=== PATIENT | male | born 1990 | race Caucasian/White ===

== ENCOUNTER 2018-03-13 16:47 | Emergency (ER) | payer OTHER ==
[~2018-03-13] VITALS: Ht 182.9 cm; Wt 90.7 kg
[2018-03-13] MEDS ORDERED: NORCO 5-325 TA1 EACH PO (17:31)
[2018-03-13] MEDS ORDERED: IBUPROFEN 800800 MG PO (17:32)
[2018-03-13] MEDS ORDERED: ACETAMINOPHEN-1 EAC1 PO (17:32)
[2018-03-13 17:45] VITALS: BP 124/70
== END 2018-03-13 17:45 | disposition home or self-care (01) ==
LOC: M.ERS 16:47
DX: S20.212A Contusion of left front wall of thorax, initial encounter (principal); X58.XXXA Exposure to other specified factors, initial encounter; Y93.89 Activity, other specified; Y92.89 Other specified places as the place of occurrence of the external cause; Y99.8 Other external cause status